=== PATIENT | female | born 1955 | race Caucasian/White ===

== ENCOUNTER → 2017-03-18 | Outpatient (CLI) | payer MEDICARE, OTHER ==
[~2017-03-18] MED LIST: ALPR.25 PO; AMOCLA875 PO; AZIT250 PO; BUPR100 PO; BUPR150ER; BUPR150ER PO; CEPH500 PO; CHOL10002 PO; CLIM.025TP TP; CLIMARA PRO; COLESTID1 GM PO; CRUTCH4 USE; CYAN500 PO; DULO60; DULO60 PO; ESCI10; ESCI10 PO; FURO40 PO; GABA100; GABA100 PO; HYDACE5325 PO; LORA1; LORA1 PO; MAXALT; MILN100T PO; NAPR220; NAPR220 PO; NAPR500 PO; OXYACE5T PO; OXYC10TA19 PO; OXYC5 PO; Omeprazole20 M1; PANT40 PO; PROP10 PO; PROP40 PO; Prednisone20 MG PO; RIZA PO; TESTOSTERONE CREAM; TRAM50; TRAM50 PO; TRAZ100 PO; TRAZ50 PO; VITAMIN B-50; VOLTARIN GEL; [UNRECOGNIZED DRUG - OTHER]; [UNRECOGNIZED DRUG - REMARK]
== END | disposition home or self-care (01) ==
LOC: LAB 01:00 → EDSTATUS 01-14 16:25 → LAB FUT 01-14 16:25
DX: K52.831 Collagenous colitis (principal); R19.7 Diarrhea, unspecified
CPT/HCPCS: 83520; 83630; 87015; 87045; 87046; 87177; 87205; 87209; 87493; 87899

== ENCOUNTER → 2022-03-26 | Outpatient (CLI) | payer MEDICARE, OTHER | LOC: LAB 14:30 → LAB SHORT 14:30 | DX: J02.9 Acute pharyngitis, unspecified (principal) | CPT/HCPCS: 87081; 87147 ==

== ENCOUNTER 2022-05-09 17:38 | Emergency (ER) | payer MEDICARE, OTHER ==
[~2022-05-09] VITALS: Ht 149.9 cm; Wt 106.6 kg
[2022-05-09 20:09] LABS: BASOPHILS ABSOLUTE AUTO 0.04 K/mm3 (0.00-0.23); BASOPHILS PERCENT AUTO 1 % (0-2); EOSINOPHILS ABSOLUTE AUTO 0.08 K/mm3 (0.00-0.68); EOSINOPHILS PERCENT AUTO 1 % (0-6); Hematocrit 41.9 % (33.0-51.0); Hemoglobin 13.9 g/dL (11.5-16.0); IMMATURE GRAN ABSOLUTE AUTO 0.01 K/mm3 (0.00-0.10); IMMATURE GRAN PERCENT AUTO 0 % (0-1); LYMPHOCYTES ABSOLUTE AUTO 1.64 K/mm3 (0.84-5.20); LYMPHOCYTES PERCENT AUTO 24 % (21-46); MONOCYTES ABSOLUTE AUTO 0.44 K/mm3 (0.16-1.47); MONOCYTES PERCENT AUTO 6 % (4-13); Mean Corpuscular HGB 30.9 pg (26.0-34.0); Mean Corpuscular HGB Conc 33.2 g/dL (31.5-36.5); Mean Corpuscular Volume 93 fL (80-100); NEUTROPHILS ABSOLUTE AUTO 4.69 K/mm3 (1.96-9.15); NEUTROPHILS PERCENT AUTO 68 % (41-73); Platelet Count 283 K/mm3 (150-400); RDW Standard Deviation 44.5 fL (35.1-46.3)
[2022-05-09 20:20] LABS: Albumin, Blood 3.5 g/dL (3.4-5.0); Albumin/Globulin Ratio 0.8 (0.8-1.8); Bilirubin, Total 0.3 mg/dL (0.1-1.0); Bun/Creatinine Ratio 18.1 (12.0-20.0); Calcium, Blood 9.3 mg/dL (8.5-10.1); Creatinine, Blood 0.83 mg/dL (0.40-1.00); Globulin, Blood 4.4 g/dL (2.2-4.0); Total Protein, Blood 7.9 g/dL (6.4-8.2)
[2022-05-09] MEDS ORDERED: Loperamide2 MG PO (22:37)
== END 2022-05-09 22:49 | disposition home or self-care (01) ==
LOC: ER 17:38
PROVIDERS: Student in an Organized Health Care Education/Training Program
DX: R19.7 Diarrhea, unspecified (principal); Z79.899 Other long term (current) drug therapy; Z88.8 Allergy status to other drugs, medicaments and biological substances
CPT/HCPCS: 80053; 85025; A9270; J7030

== ENCOUNTER 2022-10-16 12:09 | Observation (INO) | payer MEDICARE, OTHER ==
[~2022-10-16] VITALS: Ht 149.9 cm; Wt 107.3 kg
[~2022-10-16 12:09] MED LIST changes: +Loperamide2 MG PO
[2022-10-16 12:51] LABS: BASOPHILS ABSOLUTE AUTO 0.04 K/mm3 (0.00-0.23); BASOPHILS PERCENT AUTO 1 % (0-2); EOSINOPHILS ABSOLUTE AUTO 0.13 K/mm3 (0.00-0.68); EOSINOPHILS PERCENT AUTO 2 % (0-6); Hematocrit 38.2 % (33.0-51.0); Hemoglobin 12.8 g/dL (11.5-16.0); IMMATURE GRAN ABSOLUTE AUTO 0.02 K/mm3 (0.00-0.10); IMMATURE GRAN PERCENT AUTO 0 % (0-1); LYMPHOCYTES PERCENT AUTO 15 % (21-46); MONOCYTES ABSOLUTE AUTO 0.41 K/mm3 (0.16-1.47); MONOCYTES PERCENT AUTO 5 % (4-13); Mean Corpuscular HGB 30.8 pg (26.0-34.0); Mean Corpuscular HGB Conc 33.5 g/dL (31.5-36.5); Mean Corpuscular Volume 92 fL (80-100); Mean Platelet Volume 9.3 fL (9.1-12.4); NEUTROPHILS ABSOLUTE AUTO 6.25 K/mm3 (1.96-9.15); NEUTROPHILS PERCENT AUTO 78 % (41-73); Platelet Count 286 K/mm3 (150-400); RDW Coefficient Variation 13.2 % (11.7-14.2); RDW Standard Deviation 44.3 fL (35.1-46.3); Red Blood Cell Count 4.16 M/mm3 (3.80-5.20); White Blood Cell Count 8.05 K/mm3 (4.00-11.30)
[2022-10-16 13:11] LABS: Influenza A, PCR NEGATIVE (NEGATIVE); Influenza B, PCR NEGATIVE (NEGATIVE); Resp Syncytial Virus, PCR NEGATIVE (NEGATIVE); SARS-Cov-2 (COVID-19) PCR, MMC NEGATIVE (NEGATIVE)
[2022-10-16 13:11] LABS: Albumin/Globulin Ratio 0.7 (0.8-1.8); Bilirubin, Total 0.3 mg/dL (0.1-1.0); Bun/Creatinine Ratio 10.1 (12.0-20.0); Calcium, Blood 9.1 mg/dL (8.5-10.1); Creatinine, Blood 0.7 mg/dL (0.40-1.00); Globulin, Blood 4.2 g/dL (2.2-4.0); Potassium, Blood 3.9 mmol/L (3.5-5.5); Total Protein, Blood 7.2 g/dL (6.4-8.2)
[2022-10-16] MEDS ORDERED: POTA8 PO (13:11)
[2022-10-16] MEDS ORDERED: KLONOPIN0.5 M9 PO (13:11)
[2022-10-16] MEDS ORDERED: ZOLOFT50 MG PO (13:11)
[2022-10-16 19:22] LABS: Adenovirus Not Detected (NOT DETECT); Bordetella pertussis Not Detected (NOT DETECT); Chlamydophila pneumoniae Not Detected (NOT DETECT); Coronavirus 229E Not Detected (NOT DETECT); Coronavirus HKU1 Not Detected (NOT DETECT); Coronavirus NL63 Not Detected (NOT DETECT); Coronavirus OC43 Not Detected (NOT DETECT); Human Metapneumovirus Not Detected (NOT DETECT); Human Rhinovirus/Enterovirus Not Detected (NOT DETECT); Influenza A/2009-H1 Not Detected (NOT DETECT); Influenza A/H1 Not Detected (NOT DETECT); Influenza A/H3 Not Detected (NOT DETECT); Influenza B Not Detected (NOT DETECT); Mycoplasma pneumoniae Not Detected (NOT DETECT); Parainfluenza Virus 1 Not Detected (NOT DETECT); Parainfluenza Virus 2 Not Detected (NOT DETECT); Parainfluenza Virus 3 Not Detected (NOT DETECT); Parainfluenza Virus 4 Not Detected (NOT DETECT); Respiratory Syncytial Virus Not Detected (NOT DETECT); SARS-Cov-2 (COVID-19), BioFire Not Detected (NOT DETECT)
[2022-10-16 19:51] VITALS: BP 152/72
[2022-10-17 04:07] VITALS: BP 160/90
--- NOTE | 2022-10-17 04:51 | NUR ---
SHIFT SUMMARY 67 YR F ADMITTED ON 10/16/22 FOR SIRS. FULL CODE. PT C/O COUGHING EVEN AFTER BEING GIVEN MEDS PER EMAR. SHE WAS LAYING FLAT ON THE BED AND IT WAS SUGGESTED THAT SHE RAISE THE HEAD OF THE BED TO EASE HER BREATHING. IT WAS RAISED TO APPROX 45 DEGREES BUT PT STATED SHE WAS UNABLE TO SLEEP UNLESS SHE WAS LAYING FLAT. PT WAS OFFERED BREATHING TX FROM RT BUT REFUSED. SHE STATED SHE IS JUST NOT FEELING WELL AND IS FRUSTRATED THAT SHE CAN'T SLEEP.
[2022-10-17 07:19] VITALS: BP 145/82
[2022-10-17] MEDS ORDERED: MASOPHEN325 M3 PO (11:21)
[2022-10-17] MEDS ORDERED: Ventolin/Prove6.7 GM INH (11:30)
[2022-10-17] MEDS ORDERED: ALBU2.5V5 INH (11:33)
[2022-10-17] MEDS ORDERED: GUAI600T33 PO (11:34)
[2022-10-17] MEDS ORDERED: IPRAT-ALBUT 0.5-3 ML INH (11:36)
[2022-10-17] MEDS ORDERED: PRED20 PO (11:37)
--- NOTE | 2022-10-17 13:36 | NUR ---
pt discharged THE PT VERBALIZED UNDERSTANDING OF THE DC INSTRUCTIONS. THE PTS PRESCRIPTIONS WERE SENT TO [facility] REQUESTED. A FOLLOW UP APPOINTMENT WAS MADE PRIOR TO DC FOR THE PT. THE PAIN MANAGEMENT SPECIALIST ARRAINGED DELIVERY FOR A NEBULIZER FROM [facility] TO BE DELIVERED TO HER HOME. THE PT AMBULATED TO ROOM 357 ACCOMPANIED BY THE ICT HELP DESK OFFICER TO VISIT HER .
== END 2022-10-17 13:27 | disposition home or self-care (01) ==
LOC: ER 12:09 → MEDS 12:10 → ENPENDDIS 10-17 09:53 → MEDS 10-17 13:27
PROVIDERS: Emergency Medicine; Student in an Organized Health Care Education/Training Program; ADMIT Nurse Practitioner Acute Care
DX: B34.8 Other viral infections of unspecified site (principal); R65.10 Systemic inflammatory response syndrome (SIRS) of non-infectious origin without acute organ dysfunction; J06.9 Acute upper respiratory infection, unspecified; J44.9 Chronic obstructive pulmonary disease, unspecified; E78.5 Hyperlipidemia, unspecified; F32.A Depression, unspecified; F41.9 Anxiety disorder, unspecified; E66.01 Morbid (severe) obesity due to excess calories; Z87.891 Personal history of nicotine dependence; Z68.42 Body mass index [BMI] 45.0-49.9, adult
CPT/HCPCS: 0202U; 0241U; 71045; 80053; 84484; 85025; 93005; 93010; 94640; 94644; 94645; 94664; 94760; 96361; 96374; 99285-25; A9270; G0378; J1885; J7030; J7512

== ENCOUNTER 2024-05-13 14:03 | Emergency (ER) | payer MEDICARE, OTHER ==
[~2024-05-13] VITALS: Ht 149.9 cm; Wt 103.4 kg
[~2024-05-13 14:03] MED LIST changes: +ALBU2.5V5 INH; +GUAI600T33 PO; +IPRAT-ALBUT 0.5-3 ML INH; +KLONOPIN0.5 M9 PO; +MASOPHEN325 M3 PO; +POTA8 PO; +PRED20 PO; +Ventolin/Prove6.7 GM INH; +ZOLOFT50 MG PO
[2024-05-13 14:57] LABS: BASOPHILS ABSOLUTE AUTO 0.04 K/mm3 (0.00-0.23); BASOPHILS PERCENT AUTO 1 % (0-2); EOSINOPHILS ABSOLUTE AUTO 0.16 K/mm3 (0.00-0.68); EOSINOPHILS PERCENT AUTO 2 % (0-6); Hemoglobin 14.5 g/dL (11.5-16.0); IMMATURE GRAN ABSOLUTE AUTO 0.01 K/mm3 (0.00-0.10); IMMATURE GRAN PERCENT AUTO 0 % (0-1); LYMPHOCYTES PERCENT AUTO 28 % (21-46); MONOCYTES PERCENT AUTO 6 % (4-13); Mean Corpuscular HGB 32.3 pg (26.0-34.0); Mean Corpuscular HGB Conc 35.4 g/dL (31.5-36.5); Mean Corpuscular Volume 91 fL (80-100); Mean Platelet Volume 9.7 fL (9.1-12.4); NEUTROPHILS ABSOLUTE AUTO 4.87 K/mm3 (1.96-9.15); NEUTROPHILS PERCENT AUTO 63 % (41-73); Platelet Count 271 K/mm3 (150-400); RDW Coefficient Variation 12.8 % (11.7-14.2); Red Blood Cell Count 4.49 M/mm3 (3.80-5.20); White Blood Cell Count 7.78 K/mm3 (4.00-11.30)
[2024-05-13 15:20] LABS: Bun/Creatinine Ratio 23.3 (12.0-20.0); Calcium, Blood 9.2 mg/dL (8.5-10.1); Creatinine, Blood 0.77 mg/dL (0.40-1.00); Potassium, Blood 3.9 mmol/L (3.5-5.5)
[2024-05-13 16:40] VITALS: BP 106/65
== END 2024-05-13 16:39 | disposition home or self-care (01) ==
LOC: ER 14:03
PROVIDERS: Student in an Organized Health Care Education/Training Program
DX: R07.9 Chest pain, unspecified (principal); J44.9 Chronic obstructive pulmonary disease, unspecified; Z87.891 Personal history of nicotine dependence; Z79.899 Other long term (current) drug therapy; Z88.8 Allergy status to other drugs, medicaments and biological substances
CPT/HCPCS: 71046; 80048; 83690; 84484; 85025; 93005; 93010; 99285-25

== ENCOUNTER 2024-06-05 19:29 | Emergency (ER) | payer MEDICARE, OTHER ==
[~2024-06-05] VITALS: Ht 157.5 cm; Wt 158.8 kg
[2024-06-05 20:07] VITALS: BP 182/84
[2024-06-05] MEDS ORDERED: Amoxicillin/Clavulanate K 875 MG Tab PO ONE (20:15)
[2024-06-05] MEDS ORDERED: AMOCLA875 PO (20:15)
== END 2024-06-05 20:17 | disposition home or self-care (01) ==
LOC: ER 19:29
DX: S60.511A Abrasion of right hand, initial encounter (principal); W55.03XA Scratched by cat, initial encounter; Z87.891 Personal history of nicotine dependence
CPT/HCPCS: 99282; A9270

== ENCOUNTER → 2024-12-21 | Outpatient (CLI) | payer MEDICARE, OTHER | LOC: LAB SHORT 18:00 → LAB 18:00 | DX: N39.43 Post-void dribbling (principal) | CPT/HCPCS: 87086; 87147 ==